=== PATIENT | male | born 1955 | race Caucasian/White ===

== ENCOUNTER 2020-08-13 20:21 | Emergency (ER) | payer BC, OTHER ==
[2020-08-13] MEDS ORDERED: LIDOCAINE 1% W/EPI 1:100,000 MDV 20 ML VIAL ONE (23:31)
--- NOTE | 2020-08-14 02:09 | EDPHYS ---
Physician Documentation [facility] Name: Rajan Key Age: 65 yrs Sex: Male : 1955 Arrival Date: 08/13/2020 Time: 20:22 Bed 5 Private MD: ED Physician Rubin Blue HPI: 08/13 20:45 This 65 yrs old Male presents to ER via Wheelchair with complaints of Fall cp Injury, Laceration To Nose. 20:45 Details of fall: The patient fell from an upright position, while walking, and struck cp table. Associated injuries: The patient sustained injury to the head, contusion, laceration, of the nose. Severity of symptoms: in the emergency department the symptoms are unchanged, despite home interventions. 20:45 Onset: The symptoms/episode began/occurred just prior to arrival. cp Historical: - Allergies: 20:43 Iodine; bb - Home Meds: 20:43 levodopa carbidopa [Active]; spironolactone Oral [Active]; Zetia Oral [Active]; bb Ventolin Rotahaler/Rotacaps Inhl [Active]; [place]'s wort oral oral [Active]; Vitamin D Oral [Active]; - PMHx: 20:43 Parkinsons; Asthma; bb - PSHx: 20:43 Tonsillectomy; bb - Immunization history:: Adult Immunizations up to date, Client reports receiving the 2nd dose of the Covid vaccine. - Social history:: Smoking status: Patient denies any tobacco usage or history of. ROS: 20:55 Eyes: Negative for injury, pain, redness, and discharge. cp 20:55 Constitutional: Negative for body aches, chills, fever, poor PO intake. 20:55 Neck: Negative for pain with movement, pain at rest, stiffness. cp 20:55 Cardiovascular: Negative for chest pain. 20:55 Respiratory: Negative for cough, shortness of breath, wheezing. 20:55 Abdomen/GI: Negative for abdominal pain, nausea, vomiting, and diarrhea. 20:55 Neuro: Negative for altered mental status, loss of consciousness, syncope, weakness. 20:55 All other systems are negative. Exam: 20:58 Constitutional: The patient appears in no acute distress, alert, awake, cp non-diaphoretic, non-toxic, well developed, well nourished. 20:58 Head/face: Noted is abrasion(s), that are mild, of the nose, ecchymosis, that is mild, cp of the right cheek and left cheek, a laceration(s), that is linear, of the right cheek and bridge of nose, swelling, that is mild, Sinus tenderness, is not appreciated. 20:58 Eyes: Pupils: equal, round, and reactive to light and accomodation, Extraocular movements: intact throughout, Conjunctiva: normal, no exudate, no injection, Sclera: no appreciated abnormality, Lids and lashes: appear normal, bilaterally. 20:58 ENT: External ear(s): are unremarkable, Ear canal(s): are normal, clear, TM's: dullness, bilaterally, Nose: Nasal septum: is midline, bleeding, is noted from both nares, and is minimal, no septal hematoma is appreciated, Mouth: Lips: moist, Oral mucosa: moist, Posterior pharynx: Airway: no evidence of obstruction, patent. 20:58 Neck: C-spine: vertebral tenderness, is not appreciated, crepitus, is not appreciated, ROM/movement: is normal, is supple, without pain, no range of motions limitations. 20:58 Chest/axilla: Inspection: normal, Palpation: is normal, no crepitus, no tenderness. 20:58 Cardiovascular: Rate: normal. 20:58 Respiratory: the patient does not display signs of respiratory distress, Respirations: normal, no use of accessory muscles, no retractions, labored breathing, is not present. 20:58 Abdomen/GI: Inspection: abdomen appears normal, Palpation: abdomen is soft and non-tender, in all quadrants. 20:58 Back: pain, is absent. 20:58 Neuro: Orientation: to person, place \T\ time. Mentation: is normal. Vital Signs: 20:38 BP 121 / 61; Pulse 83; Resp 16 S; Temp 97.9(O); Pulse Ox 96% on R/A; Weight 117.93 kg bb (R); Height 6 ft. 2 in. (187.96 cm) (R); Pain 4/10; 22:00 BP 126 / 67; Pulse 80; Resp 16; Pulse Ox 97% on R/A; jb4 22:45 BP 102 / 68; Pulse 77; Resp 16; Pulse Ox 98% on R/A; jb4 08/14 00:00 BP 126 / 73; Pulse 79; Resp 18; Pulse Ox 100% on R/A; lp1 02:15 BP 121 / 70; Pulse 82; Resp 18; Pulse Ox 98% on R/A; lp1 08/13 20:38 Body Mass Index 33.38 (117.93 kg, 187.96 cm) bb Laceration: 00:00 Wound Repair of 2cm ( 0.8in ) subcutaneous laceration to right cheek and bridge of cp nose. Irregularly shaped.. Distal neuro/vascular/tendon intact. Anesthesia: Wound infiltrated with 3 mls of 1% lidocaine w/ Epi. Wound prep: Simple cleansing by nurse. Skin closed with 4 6-0 Prolene using simple sutures and sterile technique. Patient tolerated well. MDM: 08/13 20:27 Patient medically screened. cp 22:00 Counseling: I had a detailed discussion with the patient and/or guardian regarding: the cp historical points, exam findings, and any diagnostic results supporting the discharge/admit diagnosis, radiology results, the need for outpatient follow up, an ENT specialist, maxillary/facial surgeon, to return to the emergency department if symptoms worsen or persist or if there are any questions or concerns that arise at home. 23:00 Differential diagnosis: closed head injury, contusion, fracture, laceration, multiple cp trauma. 08/14 02:05 Data reviewed: vital signs, nurses notes, radiologic studies, CT scan, I have discussed cp the patient's presentation/case with the attending Emergency Department Physician; and as a result, I will discharge patient. 02:08 Response to treatment: the patient's symptoms have markedly improved after treatment, cp and as a result, I will discharge patient. 08/13 20:40 Order name: CT Head C Spine cp 08/13 20:40 Order name: CT Facial Bones W/O Con cp 08/13 20:40 Order name: Wound Care; Complete Time: 21:43 cp 08/13 22:45 Order name: Dressing - Wound; Complete Time: 23:12 cp 08/13 22:45 Order name: Gloves, Sterile; Complete Time: 23:12 cp 08/13 22:45 Order name: Setup Suture Tray; Complete Time: 23:12 cp Administered Medications: 08/13 23:30 Drug: Lidocaine-Epinephrine -1%: (1:100,000) 5 ml {Note: Administered by ER provider.} jb4 Volume: 20 ml; Route: Infiltration; 08/14 02:09 Drug: Clindamycin 300 mg Route: PO; jb4 02:34 Follow up: Response: Medication administered at discharge. lp1 Disposition: 03:11 Chart complete. 04:34 Co-signature as Attending Physician, Rubin Blue MD. betty Disposition: 08/14/20 02:08 Discharged to Home. Impression: Maxillary fracture, unspecified, Fracture of nasal bones, Laceration without foreign body of unspecified part of head, Fall on same level from slipping, tripping and stumbling. - Condition is Stable. - Discharge Instructions: Fall Prevention in the Home, Facial Laceration, Nasal Fracture. - Prescriptions for Clindamycin HCl 300 mg Oral Capsule - take 1 capsule by ORAL route every 6 hours for 10 days; 40 capsule. Ultracet 37.5- 325 mg Oral Tablet - take 1 tablet by ORAL route every 6 hours - for up to 5 days; do not exceed 8 tablets per day.; 20 tablet. - Medication Reconciliation Form, Thank You Letter, Antibiotic Education, Prescription Opioid Use form. - Follow up: Bharat Stevenson DDS; When: 2 - 3 days; Reason: maxilla fracture. Follow up: Jennifer Perkins MD; When: 2 - 3 days; Reason: nasal bones fracture. - Problem is new. - Symptoms have improved. Signatures: Dispatcher [employer] EDMS Rubin Blue MD MD pkSalome Suárez RN RN Saira Bass RN RN lp1 Barry Pathak PA PA cp Bryson, James, RN RN jb4 Corrections: (The following items were deleted from the chart) 02:34 02:08 08/14/2020 02:08 Discharged to Home. Impression: Maxillary fracture, unspecified; lp1 Fracture of nasal bones; Laceration without foreign body of unspecified part of head; Fall on same level from slipping, tripping and stumbling. Condition is Stable. Forms are Medication Reconciliation Form, Thank You Letter, Antibiotic Education, Prescription Opioid Use. Follow up: Bharat Stevenson; When: 2 - 3 days; Reason: maxilla fracture. Follow up: Jennifer Perkins; When: 2 - 3 days; Reason: nasal bones fracture. Problem is new. Symptoms have improved. cp
--- NOTE | 2020-08-14 02:09 | ER ---
Nurse's Notes [facility] Name: Rajan Key Age: 65 yrs Sex: Male : 1955 Arrival Date: 08/13/2020 Time: 20:22 Bed 5 Private MD: Diagnosis: Maxillary fracture, unspecified;Fracture of nasal bones;Laceration without foreign body of unspecified part of head;Fall on same level from slipping, tripping and stumbling Presentation: 08/13 20:38 Chief complaint: Patient states: he has Parkinson's lost his balance and fell hitting bb his nose on the table pt denies LOC. Coronavirus screen: At this time, the client does not indicate any symptoms associated with coronavirus-19. Ebola Screen: No symptoms or risks identified at this time. Initial Sepsis Screen: Does the patient meet any 2 criteria? No. Patient's initial sepsis screen is negative. Does the patient have a suspected source of infection? No. Patient's initial sepsis screen is negative. Risk Assessment: Do you want to hurt yourself or someone else? Patient reports no desire to harm self or others. Onset of symptoms was August 13, 2020. 20:38 Method Of Arrival: Wheelchair bb 20:38 Acuity: NAY 3 bb Historical: - Allergies: 20:43 Iodine; bb - Home Meds: 20:43 levodopa carbidopa [Active]; spironolactone Oral [Active]; Zetia Oral [Active]; bb Ventolin Rotahaler/Rotacaps Inhl [Active]; [place]'s wort oral oral [Active]; Vitamin D Oral [Active]; - PMHx: 20:43 Parkinsons; Asthma; bb - PSHx: 20:43 Tonsillectomy; bb - Immunization history:: Adult Immunizations up to date, Client reports receiving the 2nd dose of the Covid vaccine. - Social history:: Smoking status: Patient denies any tobacco usage or history of. Screenin:30 Abuse screen: Denies threats or abuse. Nutritional screening: No deficits noted. jb4 Tuberculosis screening: No symptoms or risk factors identified. Fall Risk None identified. Assessment: 20:30 General: Appears in no apparent distress. comfortable, Behavior is calm, cooperative, jb4 appropriate for age. Pain: Complains of pain in face Pain does not radiate. Pain currently is 3 out of 10 on a pain scale. Neuro: Level of Consciousness is awake, alert, obeys commands, Oriented to person, place, time, situation. Cardiovascular: Patient's skin is warm and dry. Respiratory: Airway is patent Respiratory effort is even, unlabored, Respiratory pattern is regular, symmetrical. GI: No signs and/or symptoms were reported involving the gastrointestinal system. : No signs and/or symptoms were reported regarding the genitourinary system. EENT: No signs and/or symptoms were reported regarding the EENT system. Derm: Skin is intact, Skin is pink, warm \T\ dry. Musculoskeletal: Circulation, motion, and sensation intact. Range of motion: intact in all extremities. 20:30 Injury Description: Laceration sustained to Beneath the right eye and bridge of the jb4 nose. 22:00 Reassessment: Patient appears in no apparent distress at this time. Patient and/or jb4 family updated on plan of care and expected duration. Pain level reassessed. Patient is alert, oriented x 3, equal unlabored respirations, skin warm/dry/pink. Pt given water to swish and spit to clean his mouth. 23:00 Reassessment: Patient appears in no apparent distress at this time. Patient and/or jb4 family updated on plan of care and expected duration. Pain level reassessed. Patient is alert, oriented x 3, equal unlabored respirations, skin warm/dry/pink. 08/14 00:45 Reassessment: Assisted patient with transfer to to go to bathroom; Aware of waiting lp1 for CT results. 02:00 Reassessment: Patient is alert, oriented x 3, equal unlabored respirations, skin lp1 warm/dry/pink. Assisted patient to for discharge; ANA Caal at bedside to discuss results and plan of care. Vital Signs: 08/13 20:38 BP 121 / 61; Pulse 83; Resp 16 S; Temp 97.9(O); Pulse Ox 96% on R/A; Weight 117.93 kg bb (R); Height 6 ft. 2 in. (187.96 cm) (R); Pain 4/10; 22:00 BP 126 / 67; Pulse 80; Resp 16; Pulse Ox 97% on R/A; jb4 22:45 BP 102 / 68; Pulse 77; Resp 16; Pulse Ox 98% on R/A; jb4 08/14 00:00 BP 126 / 73; Pulse 79; Resp 18; Pulse Ox 100% on R/A; lp1 02:15 BP 121 / 70; Pulse 82; Resp 18; Pulse Ox 98% on R/A; lp1 08/13 20:38 Body Mass Index 33.38 (117.93 kg, 187.96 cm) bb ED Course: 08/13 20:22 Patient arrived in ED. cf2 20:26 Barry Pathak PA is PHCP. cp 20:26 Rubin Blue MD is Attending Physician. cp 20:30 Patient has correct armband on for positive identification. Bed in low position. Call jb4 light in reach. Side rails up X 1. Pulse ox on. NIBP on. 20:40 Triage completed. bb 20:43 Ahsan Ma, ANTHONY is Primary Nurse. jb4 20:43 Arm band placed on Patient placed in an exam room, on a stretcher, on pulse oximetry. bb Family accompanied patient. 21:02 CT Head C Spine In Process Unspecified. EDMS 21:02 CT Facial Bones W/O Con In Process Unspecified. EDMS 08/14 02:06 Bharat Stevenson DDS is Referral Physician. cp 02:06 Jennifer Perkins MD is Referral Physician. cp 02:33 No provider procedures requiring assistance completed. Patient did not have IV access lp1 during this emergency room visit. Administered Medications: 08/13 23:30 Drug: Lidocaine-Epinephrine -1%: (1:100,000) 5 ml {Note: Administered by ER provider.} jb4 Volume: 20 ml; Route: Infiltration; 08/14 02:09 Drug: Clindamycin 300 mg Route: PO; jb4 02:34 Follow up: Response: Medication administered at discharge. lp1 Outcome: 02:08 Discharge ordered by . cp 02:33 Discharged to home via wheelchair, with significant other. lp1 02:33 Condition: good 02:33 Discharge instructions given to patient, significant other, Instructed on discharge instructions, follow up and referral plans. medication usage, Demonstrated understanding of instructions, follow-up care, medications, Prescriptions given X 2. 02:34 Patient left the ED. lp1 Signatures: Dispatcher [employer] [facility] Salome Vera, RN RN bb Saira Woo, RN RN lp1 Barry Pathak PA PA cp Bryson, James, RN RN jb4 Carlos A Palacios 2
[2020-08-14] MEDS ORDERED: AMOX/K CLAV 875 MG TAB ONE (02:23)
[2020-08-14 02:46] VITALS: TEMP 97.9
[2020-08-14 02:52] VITALS: BP 121/70; O2SAT 98
--- NOTE | 2020-08-14 10:49 | RAD REPORT ---
EXAM DESCRIPTION: CT - CTHCSPWOC - 08/14/2020 4:46 am CLINICAL HISTORY: Fall COMPARISON: None Available. TECHNIQUE: Multiple helical axial tomographic images were obtained of the head, facial bones, and ce rvical spine without intravenous contrast. Coronal and sagittal reformatted images were obtained. Thi s exam was performed according to our departmental dose-optimization program, which includes automate d exposure control, adjustment of the mA and/or kV according to patient size and/or use of iterative reconstruction technique. FINDINGS: There is no acute intracranial hemorrhage. No mass. No midline shift. No ventriculomegaly. Webster-white matter differentiation is maintained. Acute, comminuted fractures of the bilateral nasal bones, bilateral frontal processes of the maxilla, and anterior nasal septum demonstrated with mild displacement. Paranasal sinuses are clear. Mastoid air cells and middle ear spaces are clear. Orbits and orbital contents are unremarkable. No acute calvarial fracture. No evidence of an acute fracture of the cervical spine. Vertebral body heights appear maintained. The re is multilevel facet joint arthropathy with minimal anterior subluxation of C5 relative to C6. Smal l disc osteophyte complex at C3-C4 posteriorly present. Soft tissue swelling overlying the nasal bones noted. Linear area of atelectasis versus scarring in left upper lobe noted. There is a 1.4 cm hypodense stru cture in the right thyroid lobe. IMPRESSION: 1. No acute intracranial process. 2. No evidence of an acute fracture of the cervical spine. 3. Acute, comminuted fractures of the bilateral nasal bones, bilateral frontal processes of the max illa, and anterior nasal septum. 4. 1.4 cm incidental right thyroid nodule. No follow-up imaging is recommended. Reference: J Am Col l Radiol. 2015 Apr;12(2): 143-50 Electronically signed by: Lonnie Miranda MD 08/14/2020 1:43 AM CDT Due to temporary technical issues with the PACS/Fluency reporting system, reports are being signed by the in house radiologists without review as a courtesy to insure prompt reporting. The interpreting radiologist is fully responsible for the content of the report.
--- NOTE | 2020-08-14 10:51 | RAD REPORT ---
EXAM DESCRIPTION: CT - Facial Bones W/ Mpr - 08/14/2020 4:47 am CLINICAL HISTORY: Fall COMPARISON: None Available. TECHNIQUE: Multiple helical axial tomographic images were obtained of the head, facial bones, and ce rvical spine without intravenous contrast. Coronal and sagittal reformatted images were obtained. Thi s exam was performed according to our departmental dose-optimization program, which includes automate d exposure control, adjustment of the mA and/or kV according to patient size and/or use of iterative reconstruction technique. FINDINGS: There is no acute intracranial hemorrhage. No mass. No midline shift. No ventriculomegaly. Webster-white matter differentiation is maintained. Acute, comminuted fractures of the bilateral nasal bones, bilateral frontal processes of the maxilla, and anterior nasal septum demonstrated with mild displacement. Paranasal sinuses are clear. Mastoid air cells and middle ear spaces are clear. Orbits and orbital contents are unremarkable. No acute calvarial fracture. No evidence of an acute fracture of the cervical spine. Vertebral body heights appear maintained. The re is multilevel facet joint arthropathy with minimal anterior subluxation of C5 relative to C6. Smal l disc osteophyte complex at C3-C4 posteriorly present. Soft tissue swelling overlying the nasal bones noted. Linear area of atelectasis versus scarring in left upper lobe noted. There is a 1.4 cm hypodense stru cture in the right thyroid lobe. IMPRESSION: 1. No acute intracranial process. 2. No evidence of an acute fracture of the cervical spine. 3. Acute, comminuted fractures of the bilateral nasal bones, bilateral frontal processes of the max illa, and anterior nasal septum. 4. 1.4 cm incidental right thyroid nodule. No follow-up imaging is recommended. Reference: J Am Col l Radiol. 2015 Apr;12(2): 143-50 Electronically signed by: Lonnie Miranda MD 08/14/2020 1:43 AM CDT Due to temporary technical issues with the PACS/Fluency reporting system, reports are being signed by the in house radiologists without review as a courtesy to insure prompt reporting. The interpreting radiologist is fully responsible for the content of the report.
== END 2020-08-14 02:34 | disposition home or self-care (01) ==
LOC: ER 20:21
PROC: 0JQ10ZZ Repair Face Subcutaneous Tissue and Fascia, Open Approach (ICD-10-PCS; principal; 2020-08-14)
DX: S02.2XXA Fracture of nasal bones, initial encounter for closed fracture (principal); S02.401A Maxillary fracture, unspecified side, initial encounter for closed fracture; W01.190A Fall on same level from slipping, tripping and stumbling with subsequent striking against furniture, initial encounter; Z91.048 Other nonmedicinal substance allergy status; G20 Parkinson's disease; J45.909 Unspecified asthma, uncomplicated
CPT/HCPCS: 70450; 70486; 72125; 76377; 99284

== ENCOUNTER 2020-08-18 04:34 | Emergency (ER) | payer OTHER ==
[2020-08-18] MEDS ORDERED: OXYMETAZOLINE HCL 0.05% 15ML NAS ONE (06:13)
[2020-08-18] MEDS ORDERED: PHENYLEPHRINE 0.5% NOSE 15ML NAS ONE (07:55)
[2020-08-18 08:21] LABS: Absolute Lymphocytes (CBC) 2.4 K/uL (0.7-4.9); Basophils % 1.3 % (0-1.3); Hematocrit 40.9 % (39.6-49.0); Lymphocytes % 24.9 % (15.3-44.8); MPV 8.3 fL (7.6-11.3); RBC Red Blood Cell Count 4.47 M/uL (4.33-5.43)
[2020-08-18 08:32] LABS: ALT/SGPT 13 U/L (12-78); AST/SGOT 9 U/L (15-37); Albumin 3.6 g/dL (3.4-5.0); Alkaline Phosphatase 115 U/L (45-117); BUN Blood Urea Nitrogen 26 mg/dL (7-18); Bicarbonate 25 mmol/L (21-32); Bilirubin Direct 0.2 mg/dL (0-0.2); Bilirubin Total 0.5 mg/dL (0.2-1.0); Glucose Level 104 mg/dL (74-106); Potassium 4.2 mmol/L (3.5-5.1); Sodium Level 140 mmol/L (136-145)
[2020-08-18 10:07] LABS: Protime INR 1.04
--- NOTE | 2020-08-18 10:12 | ER ---
Nurse's Notes [facility] Name: Rajan Key Age: 65 yrs Sex: Male : 1955 Arrival Date: 08/18/2020 Time: 04:38 Bed 15 Private MD: Donny Elmore V Diagnosis: Epistaxis Presentation: 08/18 04:51 Chief complaint: Patient states: he has a broke nose was seen here and by ENT yesterday bb but about an hour ago it started bleeding externally and down his throat. Coronavirus screen: At this time, the client does not indicate any symptoms associated with coronavirus-19. Ebola Screen: No symptoms or risks identified at this time. Initial Sepsis Screen: Does the patient meet any 2 criteria? No. Patient's initial sepsis screen is negative. Does the patient have a suspected source of infection? No. Patient's initial sepsis screen is negative. Risk Assessment: Do you want to hurt yourself or someone else? Patient reports no desire to harm self or others. Onset of symptoms was August 18, 2020. 04:51 Method Of Arrival: Wheelchair bb 04:51 Acuity: NAY 4 bb Historical: - Allergies: 04:53 Iodine; bb - Home Meds: 04:54 levodopa carbidopa [Active]; Spironolactone Oral [Active]; [place]'s wort Oral bb [Active]; Ventolin Rotahaler/Rotacaps Inhl [Active]; Vitamin D Oral [Active]; Zetia Oral [Active]; - PMHx: 04:54 Asthma; Parkinsons; bb - PSHx: 04:54 Tonsillectomy; bb - Immunization history:: Adult Immunizations up to date. - Social history:: Smoking status: Patient denies any tobacco usage or history of. Screenin:00 Abuse screen: Denies threats or abuse. Denies injuries from another. Nutritional wh screening: No deficits noted. Tuberculosis screening: No symptoms or risk factors identified. Fall Risk Fall in past 12 months (25 points). Assessment: 05:00 General: Appears in no apparent distress. Behavior is calm, cooperative. Pain: Denies wh pain. Neuro: Level of Consciousness is awake, alert, obeys commands, Oriented to person, place, time, situation. Cardiovascular: Capillary refill < 3 seconds. Respiratory: Airway is patent Respiratory effort is even, unlabored, Respiratory pattern is regular, symmetrical. GI: Abdomen is non-distended. : No signs and/or symptoms were reported regarding the genitourinary system. EENT: Reports nose bleeding. Derm: Bruising that is on face. Musculoskeletal: Circulation, motion, and sensation intact. 05:53 Reassessment: Patient appears in no apparent distress at this time. No changes from previously documented assessment. Patient and/or family updated on plan of care and expected duration. Pain level reassessed. Patient is alert, oriented x 3, equal unlabored respirations, skin warm/dry/pink. 07:28 Reassessment: Pt alert, NAD, reports slow trickle of blood in back of throat, able to hb expectorate into emesis bag. Dr. Aviles aware. at remains at bedside. 08:14 Reassessment: Patient appears in no apparent distress at this time. No changes from previously documented assessment. Patient and/or family updated on plan of care and expected duration. Pain level reassessed. 09:21 Reassessment: Patient appears in no apparent distress at this time. Patient and/or hb family updated on plan of care and expected duration. Pain level reassessed. Patient is alert, oriented x 3, equal unlabored respirations, skin warm/dry/pink. Vital Signs: 04:51 BP 139 / 65; Pulse 88; Resp 16 S; Temp 98.1(A); Pulse Ox 97% on R/A; Weight 117.93 kg bb (R); Height 6 ft. 2 in. (187.96 cm) (R); Pain 0/10; 05:53 BP 130 / 54; Pulse 80; Resp 18; Pulse Ox 95% on R/A; wh 08:30 BP 132 / 72; Pulse 78; Resp 16; Pulse Ox 98% on R/A; Pain 0/10; hb 04:51 Body Mass Index 33.38 (117.93 kg, 187.96 cm) ED Course: 04:38 Patient arrived in ED. es 04:38 Donny Elmore MD is Private Physician. es 04:53 Triage completed. bb 04:54 Arm band placed on Patient placed in an exam room, on a stretcher, on pulse oximetry. bb Family accompanied patient. 05:00 Patient has correct armband on for positive identification. Bed in low position. Call light in reach. Side rails up X 1. Pulse ox on. NIBP on. 05:08 Amol Aviles MD is Attending Physician. 7 05:50 Cristóbal Gibbs, RN is Primary Nurse. 07:[address] Perkins the patient's ENT with Dr. Aviles for patient eb consultation. 08:09 Inserted saline lock: 20 gauge in left forearm, using aseptic technique. Blood mt collected. 08:24 Attending Physician role handed off by Amol Aviles MD kdr 08:24 Jose Ling MD is Attending Physician. kdr 09:42 CBC with Diff Sent. hb 10:11 Jennifer Perkins MD is Referral Physician. kdr Administered Medications: 05:57 Drug: Afrin (oxymetazoline) Drops (0.05 %) 1 sprays {Note: Administered by Provider.} Route: Intranasal; Site: both nares; Outcome: 10:12 Discharge ordered by MD. kdr 11:09 Patient left the ED. hb Signatures: Jose Ling MD MD [facility] Kamila Gutierrez Brenda, RN RN Scarlet Escamilla, RN RN Vicki Arvizu mt, Winsy, ANTHONY CRUZ Katy Martinez Maurice, MD MD [id number]
--- NOTE | 2020-08-18 10:12 | EDPHYS ---
Physician Documentation [facility] Name: Rajan Key Age: 65 yrs Sex: Male : 1955 Arrival Date: 08/18/2020 Time: 04:38 Bed 15 Private MD: Donny Elmore V ED Physician Jose Ling HPI: 08/18 07:20 This 65 yrs old Male presents to ER via Wheelchair with complaints of Nose mh7 bleed from broken nose. 07:20 The patient presents with a nose bleed. Onset: The symptoms/episode began/occurred just mh7 prior to arrival, today. Modifying factors: The symptoms are alleviated by nothing. the symptoms are aggravated by nothing. Associated signs and symptoms: The patient has no apparent associated signs or symptoms. Severity of symptoms: At their worst the symptoms were moderate today, in the emergency department the symptoms are unchanged. Historical: - Allergies: 04:53 Iodine; bb - Home Meds: 04:54 levodopa carbidopa [Active]; Spironolactone Oral [Active]; [place]'s wort Oral bb [Active]; Ventolin Rotahaler/Rotacaps Inhl [Active]; Vitamin D Oral [Active]; Zetia Oral [Active]; - PMHx: 04:54 Asthma; Parkinsons; bb - PSHx: 04:54 Tonsillectomy; bb - Immunization history:: Adult Immunizations up to date. - Social history:: Smoking status: Patient denies any tobacco usage or history of. ROS: 07:20 Constitutional: Negative for fever, chills, and weight loss, Eyes: Negative for injury, mh7 pain, redness, and discharge, Neck: Negative for injury, pain, and swelling, Cardiovascular: Negative for chest pain, palpitations, and edema, Respiratory: Negative for shortness of breath, cough, wheezing, and pleuritic chest pain, Abdomen/GI: Negative for abdominal pain, nausea, vomiting, diarrhea, and constipation, Back: Negative for injury and pain, : Negative for injury, bleeding, discharge, and swelling, MS/Extremity: Negative for injury and deformity, Skin: Negative for injury, rash, and discoloration, Neuro: Negative for headache, weakness, numbness, tingling, and seizure, Psych: Negative for depression, anxiety, suicide ideation, homicidal ideation, and hallucinations, Allergy/Immunology: Negative for hives, rash, and allergies, Endocrine: Negative for neck swelling, polydipsia, polyuria, polyphagia, and marked weight changes, Hematologic/Lymphatic: Negative for swollen nodes, abnormal bleeding, and unusual bruising. Exam: 07:20 Constitutional: This is a well developed, well nourished patient who is awake, alert, mh7 and in no acute distress. 07:20 Eyes: Pupils equal round and reactive to light, extra-ocular motions intact. Lids and lashes normal. Conjunctiva and sclera are non-icteric and not injected. Cornea within normal limits. Periorbital areas with no swelling, redness, or edema. 07:20 Neck: Trachea midline, no thyromegaly or masses palpated, and no cervical lymphadenopathy. Supple, full range of motion without nuchal rigidity, or vertebral point tenderness. No Meningismus. Chest/axilla: Normal chest wall appearance and motion. Nontender with no deformity. No lesions are appreciated. Cardiovascular: Regular rate and rhythm with a normal S1 and S2. No gallops, murmurs, or rubs. Normal PMI, no JVD. No pulse deficits. Respiratory: Lungs have equal breath sounds bilaterally, clear to auscultation and percussion. No rales, rhonchi or wheezes noted. No increased work of breathing, no retractions or nasal flaring. Abdomen/GI: Soft, non-tender, with normal bowel sounds. No distension or tympany. No guarding or rebound. No evidence of tenderness throughout. Back: No spinal tenderness. No costovertebral tenderness. Full range of motion. Skin: Warm, dry with normal turgor. Normal color with no rashes, no lesions, and no evidence of cellulitis. MS/ Extremity: Pulses equal, no cyanosis. Neurovascular intact. Full, normal range of motion. Neuro: Awake and alert, GCS 15, oriented to person, place, time, and situation. Cranial nerves II-XII grossly intact. Motor strength 5/5 in all extremities. Sensory grossly intact. Cerebellar exam normal. Normal gait. Psych: Awake, alert, with orientation to person, place and time. Behavior, mood, and affect are within normal limits. 07:20 Head/face: Noted is ecchymosis, that is mild, of the right cheek and left cheek. 07:20 ENT: External ear(s): are unremarkable, Ear canal(s): are normal, Nose: clotted blood, in right nare, Mouth: is normal, Dental exam: normal, Voice: is normal. Vital Signs: 04:51 BP 139 / 65; Pulse 88; Resp 16 S; Temp 98.1(A); Pulse Ox 97% on R/A; Weight 117.93 kg bb (R); Height 6 ft. 2 in. (187.96 cm) (R); Pain 0/10; 05:53 BP 130 / 54; Pulse 80; Resp 18; Pulse Ox 95% on R/A; wh 08:30 BP 132 / 72; Pulse 78; Resp 16; Pulse Ox 98% on R/A; Pain 0/10; hb 04:51 Body Mass Index 33.38 (117.93 kg, 187.96 cm) bb Procedures: 07:51 Epistaxis treatment: A moderate amount of bleeding noted from right nare. Treated using 7 anterior packing, nasal tampon, Bleeding stopped. MDM: 10:12 Patient medically screened. kdr 10:40 Data reviewed: vital signs, nurses notes, lab test result(s). Counseling: I had a kdr detailed discussion with the patient and/or guardian regarding: the historical points, exam findings, and any diagnostic results supporting the discharge/admit diagnosis, lab results, the need for outpatient follow up. 08/18 07:52 Order name: CBC with Diff 7 08/18 07:52 Order name: Basic Metabolic Panel; Complete Time: 08:37 7 08/18 07:52 Order name: LFT's; Complete Time: 08:37 7 08/18 07:52 Order name: Protime (+inr); Complete Time: 19:15 7 08/18 07:52 Order name: Ptt, Activated; Complete Time: 19:15 [facility] 08/18 07:53 Order name: CBC with Automated Diff; Complete Time: 08:37 EDMS 08/18 07:53 Order name: Saline Lock; Complete Time: 08:09 mh7 Administered Medications: 05:57 Drug: Afrin (oxymetazoline) Drops (0.05 %) 1 sprays {Note: Administered by Provider.} wh Route: Intranasal; Site: both nares; Disposition: 08/18/20 10:12 Discharged to Home. Impression: Epistaxis. - Condition is Fair. - Discharge Instructions: Nosebleed, [id number]. - Medication Reconciliation Form, Thank You Letter, Antibiotic Education form. - Follow up: Jennifer Perkins MD; When: 1 - 2 days; Reason: If symptoms return, Further diagnostic work-up, Recheck today's complaints, Continuance of care, Re-evaluation by your physician. - Problem is new. - Symptoms have improved. Signatures: Dispatcher [employer] EDWV Jose Ling MD MD kdr Salome Vrea RN RN bb Scarlet Guevara RN RN Cristóbal Gibbs RN RN Amol Aviles MD MD mh7 Corrections: (The following items were deleted from the chart) 11:09 10:12 08/18/2020 10:12 Discharged to Home. Impression: Epistaxis. Condition is Fair. hb Forms are Medication Reconciliation Form, Thank You Letter, Antibiotic Education, Prescription Opioid Use. Follow up: Jennifer Perkins; When: 1 - 2 days; Reason: If symptoms return, Further diagnostic work-up, Recheck today's complaints, Continuance of care, Re-evaluation by your physician. Problem is new. Symptoms have improved. kdr
[2020-08-18 11:23] VITALS: TEMP 98.1
[2020-08-18 11:26] VITALS: BP 132/72; O2SAT 98
== END 2020-08-18 11:09 | disposition home or self-care (01) ==
LOC: ER 04:34
PROC: 2Y41X5Z Packing of Nasal Region using Packing Material (ICD-10-PCS; principal; 2020-08-18)
DX: R04.0 Epistaxis (principal); G20 Parkinson's disease; Z91.048 Other nonmedicinal substance allergy status
CPT/HCPCS: 30901; 36415; 80048; 80076; 85025; 85610; 85730; 99284

== ENCOUNTER 2020-08-18 22:52 | Emergency (ER) | payer OTHER ==
--- NOTE | 2020-08-19 04:15 | EDPHYS ---
Physician Documentation [facility] Name: Rajan Key Age: 65 yrs Sex: Male : 1955 Arrival Date: 08/18/2020 Time: 22:57 Bed 3 Private MD: ED Physician Amol Aviles HPI: 08/19 04:05 This 65 yrs old Male presents to ER via Wheelchair with complaints of Nose mh7 Bleed. 04:05 The patient presents with a nose bleed, that is apparently anterior, from the right mh7 nare, occurred spontaneously, that is small amount stopped /dried blood noted. causative factors include: recent fall with nasal bone fractures last week. 04:07 Onset: The symptoms/episode began/occurred last night. Modifying factors: The symptoms mh7 are alleviated by cold compress, the symptoms are aggravated by nothing. Associated signs and symptoms: Loss of consciousness: the patient experienced no loss of consciousness, Pertinent negatives: blurred vision, chest pain, cough, ear ache, fever, lightheadedness, nausea, rhinorrhea, shortness of breath, sore throat, vertigo. Severity of symptoms: At their worst the symptoms were mild last night, in the emergency department the symptoms have resolved and did so while in waiting room. The patient has been recently seen at the [facility] Emergency Department, yesterday. Historical: - Allergies: 00:52 Iodine; iw - PMHx: 00:52 Asthma; Parkinsons; iw - PSHx: 00:52 Tonsillectomy; iw - Immunization history:: Adult Immunizations unknown. - Social history:: Smoking status: unknown. ROS: 04:07 Constitutional: Negative for fever, chills, and weight loss, Eyes: Negative for injury, mh7 pain, redness, and discharge, Neck: Negative for injury, pain, and swelling, Cardiovascular: Negative for chest pain, palpitations, and edema, Respiratory: Negative for shortness of breath, cough, wheezing, and pleuritic chest pain, Abdomen/GI: Negative for abdominal pain, nausea, vomiting, diarrhea, and constipation, Back: Negative for injury and pain, : Negative for injury, bleeding, discharge, and swelling, MS/Extremity: Negative for injury and deformity, Skin: Negative for injury, rash, and discoloration, Neuro: Negative for headache, weakness, numbness, tingling, and seizure, Psych: Negative for depression, anxiety, suicide ideation, homicidal ideation, and hallucinations, Allergy/Immunology: Negative for hives, rash, and allergies, Endocrine: Negative for neck swelling, polydipsia, polyuria, polyphagia, and marked weight changes, Hematologic/Lymphatic: Negative for swollen nodes, abnormal bleeding, and unusual bruising. Exam: 04:07 Constitutional: This is a well developed, well nourished patient who is awake, alert, mh7 and in no acute distress. 04:07 Eyes: Pupils equal round and reactive to light, extra-ocular motions intact. Lids and lashes normal. Conjunctiva and sclera are non-icteric and not injected. Cornea within normal limits. Periorbital areas with no swelling, redness, or edema. 04:07 Neck: Trachea midline, no thyromegaly or masses palpated, and no cervical lymphadenopathy. Supple, full range of motion without nuchal rigidity, or vertebral point tenderness. No Meningismus. Chest/axilla: Normal chest wall appearance and motion. Nontender with no deformity. No lesions are appreciated. Cardiovascular: Regular rate and rhythm with a normal S1 and S2. No gallops, murmurs, or rubs. Normal PMI, no JVD. No pulse deficits. Respiratory: Lungs have equal breath sounds bilaterally, clear to auscultation and percussion. No rales, rhonchi or wheezes noted. No increased work of breathing, no retractions or nasal flaring. Abdomen/GI: Soft, non-tender, with normal bowel sounds. No distension or tympany. No guarding or rebound. No evidence of tenderness throughout. Back: No spinal tenderness. No costovertebral tenderness. Full range of motion. Skin: Warm, dry with normal turgor. Normal color with no rashes, no lesions, and no evidence of cellulitis. MS/ Extremity: Pulses equal, no cyanosis. Neurovascular intact. Full, normal range of motion. Neuro: Awake and alert, GCS 15, oriented to person, place, time, and situation. Cranial nerves II-XII grossly intact. Motor strength 5/5 in all extremities. Sensory grossly intact. Cerebellar exam normal. Normal gait. Psych: Awake, alert, with orientation to person, place and time. Behavior, mood, and affect are within normal limits. 04:07 Head/face: Noted is contusion, that is superficial, of the right cheek and left cheek. 04:07 ENT: Nose: External nose: no obvious acute abnormality, Nasal septum: is midline, no septal hematoma appreciated, Nasal tampon in place right nares, no active bleeding, Examination of the other nostril shows no obvious abnormality, Mouth: is normal, Posterior pharynx: Airway: normal, small amount of dried blood, no active bleeding. Vital Signs: 00:51 BP 108 / 74; Pulse 80; Resp 16; Temp 97.9; Pulse Ox 98% on R/A; iw 03:10 BP 125 / 80; Pulse 70; Resp 16; Pulse Ox 99% ; rr5 04:12 BP 115 / 70; Pulse 75; Resp 19; Pulse Ox 98% ; rr5 MDM: 04:07 Differential diagnosis: nasal fracture, trauma, sinusitis, epistaxis r/t trauma, mh7 spontaneous epistaxis. Data reviewed: vital signs, nurses notes, old medical records. Counseling: I had a detailed discussion with the patient and/or guardian regarding: the historical points, exam findings, and any diagnostic results supporting the discharge/admit diagnosis, the need for outpatient follow up, an ENT specialist, to return to the emergency department if symptoms worsen or persist or if there are any questions or concerns that arise at home. Response to treatment: the patient's symptoms have resolved after treatment, the patient's blood pressure is in an acceptable range, mental status has returned to baseline, the patient no longer shows bradycardia, the patient is not short of breath, the patient is not tachycardic, the patient's pain is gone, the patient's temperature has normalized. 04:14 Patient medically screened. mh7 Administered Medications: No medications were administered Disposition: 08/19/20 04:14 Discharged to Home. Impression: Epistaxis - Resolved. - Condition is Stable. - Discharge Instructions: Nosebleed, [id number]. - Medication Reconciliation Form, Thank You Letter, Antibiotic Education, Prescription Opioid Use form. - Follow up: Private Physician; When: 1 - 2 days; Reason: Worsening of condition, Recheck today's complaints, Continuance of care, Re-evaluation by your physician. Follow up: Jennifer Perkins MD; When: 2 - 3 days; Reason: Worsening of condition, Recheck today's complaints, Continuance of care, Re-evaluation by your physician. - Problem is an ongoing problem. - Symptoms have improved. Signatures: Charley Barker RN RN Leland Diaz RN RN rr5 Amol Aviles MD MD mh7 Corrections: (The following items were deleted from the chart) 04:30 04:14 08/19/2020 04:14 Discharged to Home. Impression: Epistaxis - Resolved. Condition rr5 is Stable. Forms are Medication Reconciliation Form, Thank You Letter, Antibiotic Education, Prescription Opioid Use. Follow up: Private Physician; When: 1 - 2 days; Reason: Worsening of condition, Recheck today's complaints, Continuance of care, Re-evaluation by your physician. Follow up: Jennifer Perkins; When: 2 - 3 days; Reason: Worsening of condition, Recheck today's complaints, Continuance of care, Re-evaluation by your physician. Problem is an ongoing problem. Symptoms have improved. mh7
--- NOTE | 2020-08-19 04:15 | ER ---
Nurse's Notes [facility] Name: Rajan Key Age: 65 yrs Sex: Male : 1955 Arrival Date: 08/18/2020 Time: 22:57 Bed 3 Private MD: Diagnosis: Epistaxis-Resolved Presentation: 08/19 00:50 Chief complaint: Spouse and/or significant other states: fell Friday night, has a iw broken nose , nose started bleeding yesterday morning, was seen in ER and had rhino rocket placed to right nare , started bleeding again tonight, bleeding appears to have stopped now. 00:50 Acuity: NAY 3 iw 00:50 Method Of Arrival: Wheelchair iw 00:51 Coronavirus screen: At this time, the client does not indicate any symptoms associated iw with coronavirus-19. Ebola Screen: Patient negative for fever greater than or equal to 101.5 degrees Fahrenheit, and additional compatible Ebola Virus Disease symptoms Patient denies exposure to infectious person. Patient denies travel to an Ebola-affected area in the 21 days before illness onset. No symptoms or risks identified at this time. Initial Sepsis Screen: Does the patient meet any 2 criteria? No. Patient's initial sepsis screen is negative. Does the patient have a suspected source of infection? No. Patient's initial sepsis screen is negative. Risk Assessment: Do you want to hurt yourself or someone else? Patient reports no desire to harm self or others. Onset of symptoms was August 19, 2020. Historical: - Allergies: 00:52 Iodine; iw - PMHx: 00:52 Asthma; Parkinsons; iw - PSHx: 00:52 Tonsillectomy; iw - Immunization history:: Adult Immunizations unknown. - Social history:: Smoking status: unknown. Screenin: Abuse screen: Denies threats or abuse. Denies injuries from another. Nutritional rr5 screening: No deficits noted. Tuberculosis screening: No symptoms or risk factors identified. Fall Risk Fall in past 12 months (25 points). Gait- Impaired (20 pts.). Total Suarez Fall Scale indicates High Risk Score (45 or more points). Fall prevention measures have been instituted. Side Rails Up X 2 Frequent Obs/Assessments Occuring As available patient and family educated on Fall Prevention Program and Strategies. Assessment: 01:28 General: Appears in no apparent distress. uncomfortable, Behavior is calm, cooperative, rr5 appropriate for age. Pain: Complains of pain in nose. Neuro: Level of Consciousness is awake, alert, obeys commands, Oriented to person, place, time, situation. Cardiovascular: Capillary refill < 3 seconds Patient's skin is warm and dry. Respiratory: Airway is patent Respiratory effort is even, unlabored, Respiratory pattern is regular, symmetrical. EENT: Nares with bleeding noted nasal packing applied. Derm: Skin is intact, is healthy with good turgor, Skin temperature is warm. Musculoskeletal: Capillary refill < 3 seconds. 02:30 Reassessment: Patient appears in no apparent distress at this time. Patient is alert, rr5 oriented x 3, equal unlabored respirations, skin warm/dry/pink. nose bleed stopped. Patient states symptoms have improved. 03:30 Reassessment: Patient appears in no apparent distress at this time. Patient is alert, rr5 oriented x 3, equal unlabored respirations, skin warm/dry/pink. reassess by ED provider, no bleeding noted. 04:28 Reassessment: Patient appears in no apparent distress at this time. Patient is alert, rr5 oriented x 3, equal unlabored respirations, skin warm/dry/pink. discharge instruction given and explained without complaints made Patient states symptoms have improved. Vital Signs: 00:51 BP 108 / 74; Pulse 80; Resp 16; Temp 97.9; Pulse Ox 98% on R/A; iw 03:10 BP 125 / 80; Pulse 70; Resp 16; Pulse Ox 99% ; rr5 04:12 BP 115 / 70; Pulse 75; Resp 19; Pulse Ox 98% ; rr5 ED Course: 08/18 22:57 Patient arrived in ED. am4 08/19 00:51 Triage completed. iw 00:52 Arm band placed on. iw 01:28 Leland Diaz RN is Primary Nurse. rr5 01:29 Patient has correct armband on for positive identification. Bed in low position. Call rr5 light in reach. Pulse ox on. NIBP on. Ice pack to injury. 01:32 Amol Aviles MD is Attending Physician. mh7 04:13 Jennifer Perkins MD is Referral Physician. mh7 04:29 No provider procedures requiring assistance completed. Patient did not have IV access rr5 during this emergency room visit. Administered Medications: No medications were administered Outcome: 04:14 Discharge ordered by . reinaldo 04:29 Discharged to home via wheelchair, with family. rr5 04:29 Condition: stable 04:29 Discharge instructions given to patient, family, Instructed on discharge instructions, follow up and referral plans. Demonstrated understanding of instructions, follow-up care. 04:30 Patient left the ED. rr5 Signatures: Charley Barker RN RN iw Roque, Raymond, RN RN rr5 Amol Aviles MD MD 7 Elaina Tirado
[2020-08-19 04:35] VITALS: TEMP 97.9
[2020-08-19 04:37] VITALS: BP 115/70; O2SAT 98
== END 2020-08-19 04:30 | disposition home or self-care (01) ==
LOC: ER 22:52
DX: R04.0 Epistaxis (principal); J45.909 Unspecified asthma, uncomplicated; G20 Parkinson's disease
CPT/HCPCS: 99283